=== PATIENT | male | born 1965 | race Caucasian/White ===

== ENCOUNTER 2021-10-30 03:47 | Emergency (ER) | payer MEDICAID ==
[~2021-10-30] VITALS: Ht 167.6 cm; Wt 68.2 kg
[2021-10-30] MEDS ORDERED: NO HOME MEDS (04:09)
[2021-10-30] MEDS ORDERED: CYCL-1 PO (04:41)
[2021-10-30] MEDS ORDERED: ibuprofen tablet 400 MG TABLET PO ONE (04:45)
[2021-10-30 05:00] VITALS: BP 117/84
== END 2021-10-30 05:06 | disposition home or self-care (01) ==
LOC: ER 03:48
DX: M54.30 Sciatica, unspecified side (principal); F17.200 Nicotine dependence, unspecified, uncomplicated; Z88.6 Allergy status to analgesic agent; Z79.899 Other long term (current) drug therapy
CPT/HCPCS: 99283